=== PATIENT | female | born 2000 | race Caucasian/White ===

== ENCOUNTER 2020-03-08 17:18 | Emergency (ER) | payer OTHER ==
[~2020-03-08] VITALS: Ht 162.6 cm; Wt 66.7 kg
[2020-03-08 19:37] VITALS: BP 122/81
== END 2020-03-08 19:39 | disposition home or self-care (01) ==
LOC: M.ERS 17:18
DX: S93.491A Sprain of other ligament of right ankle, initial encounter (principal); Z90.89 Acquired absence of other organs; W01.0XXA Fall on same level from slipping, tripping and stumbling without subsequent striking against object, initial encounter; Y93.E1 Activity, personal bathing and showering; Y92.89 Other specified places as the place of occurrence of the external cause; Y99.9 Unspecified external cause status